=== PATIENT | female | born 1960 | race African-American/Black ===

== ENCOUNTER 2024-01-08 20:10 | Inpatient (IN) | payer OTHER ==
[~2024-01-08] VITALS: Ht 170.2 cm; Wt 88.5 kg
[2024-01-08] MEDS: LABETALOL 5MG/ML 4ML INJ IV ONE (20:45)
[2024-01-08] MEDS ORDERED: CEFTRIAXONE 1GM/50ML 50 ML IV ONE (23:00)
[2024-01-08 23:19] LABS: CHLORIDE 102 mEq/L (98-107); POTASSIUM 3.7 mEq/L (3.5-5.1); SODIUM 136 mEq/L (136-145)
[2024-01-08 23:20] LABS: CALCIUM 9.8 mg/dL (8.7-10.4); CARBON DIOXIDE 25 mEq/L (21-32)
[2024-01-08 23:22] LABS: LACTIC ACID 2.8 mmol/L (0.4-2.0)
[2024-01-08 23:25] LABS: CREATININE 1.9 mg/dL (0.6-1.0); GLUCOSE 102 mg/dL (70-105); UREA NITROGEN BLOOD 17 mg/dL (9-23)
[2024-01-08 23:29] LABS: ETHANOL BLOOD < 10 mg/dL (<10)
[2024-01-08] MEDS: SODIUM CHLORIDE 0.9% 1000ML BAG (SEPSIS BOLUS) IV ONE (23:35)
[2024-01-08] MEDS: CEFTRIAXONE 1GM/50ML 50 ML IV NR (23:35)
[2024-01-08] MEDS: IOHEXOL-350 100 ML BOTTLE ONE (23:36)
[2024-01-08 23:40] LABS: TROPONIN I HIGH SENSITIVITY 83 ng/L (3.0-34)
[2024-01-08 23:44] LABS: HEMATOCRIT. 48.5 % (36.0-48.0); HEMOGLOBIN. 15.4 g/dL (12.0-16.0); MEAN CORPUSCULAR HEMOGLOBIN 28.3 pg (28.0-32.0); MEAN CORPUSCULAR HGB CONC 31.7 g/dL (31.0-37.0); MEAN CORPUSCULAR VOLUME 89.2 fL (81.0-99.0); MEAN PLATELET VOLUME 11.2 fl (7.4-10.4); PLATELET 84 x1000/uL (130-400); RED BLOOD CELL COUNT 5.44 mill/uL (4.2-5.4); RED CELL DISTRIBUTION WIDTH 15.3 % (11.6-14.6); WHITE BLOOD COUNT 9.5 x1000/uL (4.5-11.0)
[2024-01-08 23:59] LABS: DIFFERENTIAL COMMENT 1
[2024-01-09 00:03] LABS: INR 0.9; PROTHROMBIN TIME 10.4 sec (9.6-11.0)
[2024-01-09] MEDS: HYDRALAZINE 20MG/ML VIAL IV NR (00:03)
[2024-01-09] MEDS: LABETALOL 5MG/ML 4ML INJ IV NR (01:02)
[2024-01-09 02:14] VITALS: BP 197/111; PULSE 93; RESP 18; TEMP 97.5
[2024-01-09] MEDS: ATORVASTATIN CALCIUM 40MG TABLET PO NR (03:55)
[2024-01-09] MEDS: ASPIRIN 81MG EC TABLET PO NR (03:55)
[2024-01-09] MEDS: AMLODIPINE 10MG TABLET PO NR (03:56)
[2024-01-09] MEDS: LOSARTAN 50 MG TABLET PO NR (03:57)
[2024-01-09 04:00] VITALS: BP 189/108; PULSE 91; RESP 18; TEMP 97.5
[2024-01-09 04:19] LABS: ATYPICAL LYMPHOCYTES 1
[2024-01-09 04:20] LABS: GIANT PLATELETS FEW; OVALOCYTES 1+; PLATELET ESTIMATE SLIGHTLY DECREASED; TEAR DROP CELLS 1+
[2024-01-09 04:21] LABS: TARGET CELLS 1+
[2024-01-09] MEDS ORDERED: DEXTROSE 50% WATER 50ML SYRINGE IV PRN ×2 (06:30)
[2024-01-09] MEDS: BLOOD SUGAR DIAGNOSTIC STRIP TEST SCH (06:42)
[2024-01-09] MEDS: INSULIN LISPRO 100 UNITS/ML SUBCUT SCH (06:52)
[2024-01-09] MEDS ORDERED: HYDRALAZINE HCL 25MG TABLET PO PRN (07:45)
[2024-01-09 08:00] VITALS: BP 169/90; PULSE 91; RESP 18; TEMP 97.2
[2024-01-09 08:18] LABS: HEPATITIS B SURFACE ANTIGEN NEGATIVE (Negative)
[2024-01-09 08:40] LABS: HEPATITIS C AB NON REACTIVE (Neg) (Negative)
[2024-01-09] MEDS: CLOPIDOGREL 75MG TABLET PO SCH (09:00)
[2024-01-09] MEDS ORDERED: ATORVASTATIN CALCIUM 40MG TABLET PO SCH (09:00)
[2024-01-09] MEDS: LOSARTAN 50 MG TABLET PO SCH (09:47)
[2024-01-09] MEDS: AMLODIPINE 10MG TABLET PO SCH (09:47)
[2024-01-09 11:08] LABS: AMMONIA < 17 uMol/L (<32)
[2024-01-09 11:25] LABS: VITAMIN B12 SERUM 526 pg/mL (211-911)
[2024-01-09 12:00] VITALS: BP 135/73; PULSE 88; RESP 18; TEMP 98.1
[2024-01-09 16:00] VITALS: BP 159/78; PULSE 91; RESP 19; TEMP 98.6
[2024-01-09] MEDS ORDERED: ACETAMINOPHEN 325MG TABLET PO PRN (18:15)
[2024-01-09] MEDS: ACETAMINOPHEN 650MG/20.3ML UDC PO PRN (18:38)
[2024-01-09 18:41] LABS: BASOPHILS % 0.9 % (0.0-2.0); DIFFERENTIAL COMMENT 0; EOSINOPHILS % 0.1 % (0.0-5.0); HEMATOCRIT. 42.2 % (36.0-48.0); HEMOGLOBIN. 13.6 g/dL (12.0-16.0); LYMPHOCYTES % 10.5 % (20.0-50.0); MEAN CORPUSCULAR HEMOGLOBIN 28.2 pg (28.0-32.0); MEAN CORPUSCULAR HGB CONC 32.3 g/dL (31.0-37.0); MEAN CORPUSCULAR VOLUME 87.2 fL (81.0-99.0); MEAN PLATELET VOLUME 11.4 fl (7.4-10.4); MONOCYTES % 10.1 % (2.0-8.0); NEUTROPHILS % 78.4 % (40.0-76.0); PLATELET 77 x1000/uL (130-400); RED BLOOD CELL COUNT 4.84 mill/uL (4.2-5.4); RED CELL DISTRIBUTION WIDTH 15.3 % (11.6-14.6); WHITE BLOOD COUNT 7.5 x1000/uL (4.5-11.0)
[2024-01-09 18:44] LABS: POTASSIUM 3.9 mEq/L (3.5-5.1)
[2024-01-09 18:46] LABS: CALCIUM 8.7 mg/dL (8.7-10.4)
[2024-01-09 18:50] LABS: CREATININE 2.1 mg/dL (0.6-1.0)
[2024-01-09 18:55] LABS: T4 FREE 0.8 ng/dL (0.89-1.76)
[2024-01-09 20:00] VITALS: BP 141/77; PULSE 92; RESP 19; TEMP 98
[2024-01-09 20:28] LABS: CLARITY URINE CLEAR (CLEAR); COLOR URINE YELLOW (YELLOW); GLUCOSE URINE 3+ (NEGATIVE); KETONES URINE NEGATIVE (NEGATIVE); LEUKOCYTE ESTERASE URINE NEGATIVE (NEGATIVE); NITRITE URINE NEGATIVE (NEGATIVE); OCCULT BLOOD URINE 2+ (NEGATIVE); PH URINE 5.5 (4.5-8.0); PROTEIN URINE 4+ (NEGATIVE); SPECIFIC GRAVITY URINE 1.036 (1.005-1.030); UROBILINOGEN URINE 0.2 E.U./dL (0.2-1.0)
[2024-01-09] MEDS: ATORVASTATIN CALCIUM 40MG TABLET PO SCH (20:29)
[2024-01-09] MEDS: CEFTRIAXONE 1GM/50ML 50 ML IV SCH (20:31)
[2024-01-09 20:37] LABS: *AMPHETAMINES SCREEN URINE NEGATIVE (NEGATIVE); *BARBITURATES SCREEN URINE NEGATIVE (NEGATIVE); *BENZODIAZEPINES SCREEN URINE NEGATIVE (NEGATIVE); *COCAINE SCREEN URINE NEGATIVE (NEGATIVE)
[2024-01-09 20:38] LABS: CANNABINOID URINE SCREEN NEGATIVE (NEGATIVE); ECSTASY MDMA SCREEN URINE NEGATIVE (NEGATIVE); METHADONE URINE SCREEN NEGATIVE (NEGATIVE); OPIATES URINE SCREEN NEGATIVE (NEGATIVE); PHENCYCLIDINE URINE SCREEN NEGATIVE (NEGATIVE)
[2024-01-09 20:55] LABS: BACTERIA URINE 2+; SQUAMOUS EPITHELIAL CELL URINE 1+ /lpf (RARE/1+)
[2024-01-10] VITALS: BP 141/80; PULSE 82; RESP 18; TEMP 98.2
[2024-01-10 04:00] VITALS: BP 149/73; PULSE 93; RESP 19; TEMP 98.3
[2024-01-10 08:00] VITALS: BP 133/88; PULSE 91; RESP 16; TEMP 97.8
[2024-01-10] MEDS: ASPIRIN 81MG TABLET PO SCH (08:16)
[2024-01-10 10:06] LABS: BASOPHILS % 0.7 % (0.0-2.0); DIFFERENTIAL COMMENT 0; EOSINOPHILS % 1.3 % (0.0-5.0); HEMATOCRIT. 39.2 % (36.0-48.0); HEMOGLOBIN. 12.8 g/dL (12.0-16.0); LYMPHOCYTES % 13.5 % (20.0-50.0); MEAN CORPUSCULAR HEMOGLOBIN 28.2 pg (28.0-32.0); MEAN CORPUSCULAR HGB CONC 32.7 g/dL (31.0-37.0); MEAN CORPUSCULAR VOLUME 86.2 fL (81.0-99.0); MEAN PLATELET VOLUME 11.7 fl (7.4-10.4); MONOCYTES % 13.4 % (2.0-8.0); NEUTROPHILS % 71.1 % (40.0-76.0); PLATELET 71 x1000/uL (130-400); RED BLOOD CELL COUNT 4.55 mill/uL (4.2-5.4); RED CELL DISTRIBUTION WIDTH 14.7 % (11.6-14.6); WHITE BLOOD COUNT 6.1 x1000/uL (4.5-11.0)
[2024-01-10 10:08] LABS: CALCIUM 8.4 mg/dL (8.7-10.4)
[2024-01-10 10:13] LABS: CREATININE 2.3 mg/dL (0.6-1.0)
[2024-01-10 12:00] VITALS: BP 133/77; PULSE 89; RESP 19; TEMP 97.9
[2024-01-10 16:00] VITALS: BP 142/80; PULSE 86; RESP 18; TEMP 97.6
[2024-01-10 17:37] VITALS: BP 142/80; PULSE 86; TEMP 97.6; O2SAT 96
[2024-01-10] MEDS ORDERED: ATORVASTATIN CALCIUM 40MG TABLET PO SCH (21:00)
== END 2024-01-10 19:10 | disposition short-term general hospital (02) | DRG 304 ==
LOC: ER 20:10 → 7EST 22:13 → EDBEDREQ 22:15
PROVIDERS: ADMIT Internal Medicine; ATTEND Internal Medicine
DX: I16.1 Hypertensive emergency (principal); G92.8 Other toxic encephalopathy; N17.0 Acute kidney failure with tubular necrosis; I67.4 Hypertensive encephalopathy; E87.20 Acidosis, unspecified; D69.6 Thrombocytopenia, unspecified; D72.825 Bandemia; E11.9 Type 2 diabetes mellitus without complications; E66.9 Obesity, unspecified; I10 Essential (primary) hypertension; Z68.30 Body mass index [BMI] 30.0-30.9, adult; Z79.899 Other long term (current) drug therapy
CPT/HCPCS: 36415; 70496; 70498; 70551; 71045; 76770; 80048; 80061; 80305; 80320; 81003; 82140; 82550; 82607; 82962; 83036; 83605; 84145; 84439; 84443; 84484; 85025; 86705; 86850; 86900; 87340; 92523; 92610; 93005; 93306; 97116; 97162; 99285; J0360; J0696; J1815; J3490; J7030; Q9967; G0480